=== PATIENT | female | born 1965 | race Caucasian/White ===

== ENCOUNTER → 2016-10-05 | Outpatient (CLI) | payer BC ==
[~2016-10-05] MED LIST: PROTONIX 40MG T40 MG PO
== END ==
LOC: LAB 07:30
DX: A04.8 Other specified bacterial intestinal infections (principal)

== ENCOUNTER → 2016-11-02 | Outpatient (CLI) | payer BC ==
--- NOTE | 2016-11-04 20:36 | RADIOLOGY REPORT PS360 ---
DIG MAMM-SCREEN ZARA W/CAD CAD Screening ORDERING PHYSICIAN : Adrian Coleman MD PATIENT AGE: 51 years GENDER: Female COMPARISON: Previous mammograms: September 2015, August 2013 and March INDICATION: Routine screening 51-year-old. 70 pound weight loss. Family history: with mother breast cancer in her 50s.. Maternal grandmother with breast cancer TECHNIQUE: Standard CC and MLO images were obtained. R2 CAD reviewed. FINDINGS: Fairly low-density breast with minimal fibroglandular elements and structure elements bilaterally . No new findings. No dominant mass. No suspicious calcifications. CAD review highlights no areas of concern either. . IMPRESSION: Stable bilateral mammogram. No areas of concern BI-RADS CATEGORY: 1_Negative RECOMMENDED FOLLOWUP: 12M 12 MONTH FOLLOW-UP (A letter has been sent to the patient regarding results of the study.)
== END ==
LOC: RAD 08:26
DX: Z12.31 Encounter for screening mammogram for malignant neoplasm of breast (principal)
CPT/HCPCS: G0202